=== PATIENT | male | born 1950 | race Hispanic/Latino ===

== ENCOUNTER → 2022-03-04 | Emergency (ER) | payer SELFPAY ==
[~2022-03-04] VITALS: Ht 167.6 cm; Wt 72.6 kg
[2022-03-04 16:32] VITALS: BP 160/92
== END | disposition left against medical advice (07) ==
LOC: EDH 16:30
DX: Z02.83 Encounter for blood-alcohol and blood-drug test (principal); Z53.21 Procedure and treatment not carried out due to patient leaving prior to being seen by health care provider